=== PATIENT | female | born 1995 | race Caucasian/White ===

== ENCOUNTER 2016-05-30 10:21 | Emergency (ER) | payer MEDICAID, OTHER ==
[2016-05-30 10:37] VITALS: TEMP 98.2; BMI 17.4
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
[2016-05-30] MEDS ORDERED: DIAZEPAM 5 MG TAB PO ONE (11:10)
[2016-05-30] MEDS ORDERED: OXYCODONE HCL 5 MG TABLET PO ONE (11:10)
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
[2016-05-30 14:01] VITALS: BP 114/68; PULSE 68
== END 2016-05-30 13:59 | disposition home or self-care (01) ==
LOC: ED 10:21
DX: S16.1XXD Strain of muscle, fascia and tendon at neck level, subsequent encounter (principal); V49.40XD Driver injured in collision with unspecified motor vehicles in traffic accident, subsequent encounter
CPT/HCPCS: 72125; 81025; 99284; J3490